=== PATIENT | female | born 1995 | race Hispanic/Latino ===

== ENCOUNTER 2017-06-21 20:45 | Emergency (ER) | payer OTHER, SELFPAY | END 2017-06-21 23:06 | disposition home or self-care (01) | LOC: ERS 20:45 | DX: H66.91 Otitis media, unspecified, right ear (principal); J01.90 Acute sinusitis, unspecified; F17.210 Nicotine dependence, cigarettes, uncomplicated | CPT/HCPCS: 99283 ==

== ENCOUNTER 2018-01-06 13:40 | Emergency (ER) | payer SELFPAY ==
[2018-01-06 14:11] LABS: #Basophils 0.1 thou/uL (0.0-0.2); #Eosinphils 0.3 thou/uL (0.0-0.7); #Lymphocytes 2.2 thou/uL (1.20-3.40); #Monocytes 0.5 thou/uL (0.11-0.59); #Neutrophils 7.5 thou/uL (1.40-6.50); %Basophils 0.9 % (0.0-1.0); %Eosinophils 2.9 % (0.0-10.0); %Lymphocytes 20.5 % (21.0-51.0); %Neutrophils 70.8 % (42.0-75.0); Hemoglobin 15.3 g/dL (12.0-16.0); Mean Corpuscular HGB CONC 33.5 g/dL (32.0-36.0); Mean Corpuscular Hemoglobin 28.2 pg (27.0-31.0); Mean Platelet Volume 7.6 fL (7.4-10.4); Platelet Count 195 thou/uL (130-400); RBC Distribution Width 13.4 % (11.5-14.5); Red Blood Cell (RBC) Count 5.44 mill/uL (4.20-5.40); White Blood Cell (WBC) Count 10.6 thou/uL (4.8-10.8)
[2018-01-06] MEDS ORDERED: Ondansetron ODT 8 MG TAB ONE (14:13)
[2018-01-06 14:32] LABS: Bilirubin Small (Negative); Blood, Urine Trace (Negative); Glucose, Urine (Dipstick) Negative (Negative); Leukocyte Trace (Negative); Nitrite Negative (Negative); Protein, Urine (Dipstick) Trace mg/dL (Neg-Trace); Urobilinogen 0.2 mg/dL (0.2-1.0)
[2018-01-06 14:33] LABS: ALT (SGPT) 69 U/L (8-55); AST (SGOT) 31 U/L (5-34); Albumin 4.6 g/dL (3.5-5.0); Alkaline Phosphatase 71 U/L (40-150); Anion Gap 14 mmol/L (10-20); BUN (Urea Nitrogen) 11 mg/dL (7.0-18.7); Bilirubin, Total 0.7 mg/dL (0.2-1.2); Calc. Creatinine Clearance 0 mL/min (70-130); Calcium 9.7 mg/dL (7.8-10.44); Carbon Dioxide 21 mmol/L (22-29); Chloride 107 mmol/L (98-107); Estimated GFR-MDRD Greater than 90; Globulin 3.5 g/dL (2.4-3.5); Glucose 100 mg/dL (70-105); Lipase 7 U/L (8-78); Potassium 3.9 mmol/L (3.5-5.1); Protein, Total 8.1 g/dL (6.0-8.3); Sodium 138 mmol/L (136-145)
[2018-01-06 14:33] LABS: Clarity Clear (Clear)
[2018-01-06 14:35] LABS: Pregnancy Test - Urine (BHCG) Negative (Negative); Pregu Control Background? CLEAR/WHITE (CLR/WHITE); Pregu Control Bar Appear? YES (CONTROL BAR)
[2018-01-06 14:43] LABS: Bacteria/HPF None Seen HPF (None Seen); Hyaline Casts/LPF NONE SEEN LPF (0-3 Hyaline); RBC/HPF 0-3 HPF (0-3); Renal Epithelial None Seen HPF (0-3); Squamous Epithelial 0-3 HPF (0-3); Transitional Epithelial NONE SEEN HPF (0-3); WBC/HPF 0-3 HPF (0-3)
--- NOTE | 2018-01-06 15:26 | ULT ---
SONOGRAM RIGHT UPPER QUADRANT: HISTORY: Right upper quadrant pain. FINDINGS: Gallbladder has a normal appearance without evidence of stones. Common duct is 0.4 cm. Liver unrema rkable without foal mass or intrahepatic biliary dilatation. No free fluid. IMPRESSION: No evidence of gallstones or biliary obstruction. POS: [facility]
[2018-01-06] MEDS ORDERED: Mag-Al 1200 mg/1200 mg/30 ML UDCUP ONE (15:40)
[2018-01-06] MEDS ORDERED: Lidocaine Viscous Sol 2% 15 ml UD Cup ONE (15:40)
== END 2018-01-06 16:50 | disposition home or self-care (01) ==
LOC: ERS 13:40
DX: K29.70 Gastritis, unspecified, without bleeding (principal); Z71.6 Tobacco abuse counseling; F17.210 Nicotine dependence, cigarettes, uncomplicated
CPT/HCPCS: 76705; 80053; 81003; 81015; 81025; 83690; 85025; 96361; 96374; 99406; J2270

== ENCOUNTER 2018-07-30 21:07 | Emergency (ER) | payer SELFPAY ==
[2018-07-30 22:03] LABS: #Eosinphils 0.3 thou/uL (0.0-0.7); #Lymphocytes 1.9 thou/uL (1.20-3.40); #Monocytes 0.5 thou/uL (0.11-0.59); #Neutrophils 6.1 thou/uL (1.40-6.50); %Basophils 0.2 % (0.0-1.0); %Eosinophils 3.1 % (0.0-10.0); %Lymphocytes 21.4 % (21.0-51.0); %Monocytes 5.2 % (0.0-10.0); %Neutrophils 70.1 % (42.0-75.0); Hemoglobin 13.5 g/dL (12.0-16.0); Mean Corpuscular HGB CONC 34.3 g/dL (32.0-36.0); Mean Corpuscular Hemoglobin 28.5 pg (27.0-31.0); Mean Corpuscular Volume 83.1 fL (78.0-98.0); Mean Platelet Volume 8.1 fL (7.4-10.4); Platelet Count 189 thou/uL (130-400); RBC Distribution Width 13.5 % (11.5-14.5); Red Blood Cell (RBC) Count 4.74 mill/uL (4.20-5.40); White Blood Cell (WBC) Count 8.8 thou/uL (4.8-10.8)
[2018-07-30 22:23] LABS: ALT (SGPT) 61 U/L (8-55); AST (SGOT) 27 U/L (5-34); Alkaline Phosphatase 61 U/L (40-150); Anion Gap 12 mmol/L (10-20); BUN (Urea Nitrogen) 7 mg/dL (7.0-18.7); Bilirubin, Total 0.5 mg/dL (0.2-1.2); Calc. Creatinine Clearance 0 mL/min (70-130); Calcium 8.3 mg/dL (7.8-10.44); Carbon Dioxide 24 mmol/L (22-29); Chloride 104 mmol/L (98-107); Estimated GFR-MDRD Greater than 90; Globulin 3.2 g/dL (2.4-3.5); Glucose 119 mg/dL (70-105); Lipase 10 U/L (8-78); Protein, Total 7.2 g/dL (6.0-8.3); Sodium 137 mmol/L (136-145)
[2018-07-30 22:28] LABS: Bilirubin Small (Negative); Blood, Urine Negative (Negative); Clarity CLEAR (Clear); Glucose, Urine (Dipstick) Negative (Negative); Leukocyte Negative (Negative); Nitrite Negative (Negative); Protein, Urine (Dipstick) Negative (Neg-Trace); Specific Gravity, Urine 1.025 (1.002-1.036)
[2018-07-30 22:29] LABS: Pregnancy Test - Urine (BHCG) POSITIVE (Negative); Pregu Control Background? CLEAR/WHITE (CLR/WHITE); Pregu Control Bar Appear? YES (CONTROL BAR); Specific Gravity 1.025 (1.002-1.036)
[2018-07-30] MEDS ORDERED: Metoclopramide HCl 10 MG/2 ML VIAL ONE (23:04)
[2018-07-30] MEDS ORDERED: Acetaminophen 500 MG TAB ONE (23:04)
== END 2018-07-31 00:30 | disposition home or self-care (01) ==
LOC: ERS 21:07
DX: O99.89 Other specified diseases and conditions complicating pregnancy, childbirth and the puerperium (principal); R51 Headache; O99.341 Other mental disorders complicating pregnancy, first trimester; F41.9 Anxiety disorder, unspecified; Z3A.01 Less than 8 weeks gestation of pregnancy
CPT/HCPCS: 36415; 80053; 81003; 81025; 83690; 85025; 96365; J2765

== ENCOUNTER 2018-09-10 07:32 | Outpatient (CLI) | payer OTHER ==
--- NOTE | 2018-09-10 09:21 | ULT ---
PELVIC ULTRASOUND: Date: 09-10-18 Provided Clinical History: High risk 1st trimester . FINDINGS: A single live intrauterine gestation is documented, 10 weeks 5 days by crown-rump length. heart rate of 161 beats/minute is documented. There is no evidence for gestational hemorrhage. The right ovary is not distinctly identified. The left ovary appears sonographically unremarkable wit h a physiologic 3.7 cm cyst demonstrated. There is no evidence for free pelvic fluid. Color doppler and spectral analysis of the left ovary demonstrates normal flow. IMPRESSION: Single live intrauterine gestation, 10 weeks 5 days by ultrasound. Follow up anatomic survey sh ould be considered. POS: [facility]
== END 2018-09-10 07:33 | disposition home or self-care (01) ==
LOC: BICULT 07:32
PROVIDERS: ATTEND Obstetrics & Gynecology
DX: O09.91 Supervision of high risk pregnancy, unspecified, first trimester (principal)
CPT/HCPCS: 76856

== ENCOUNTER 2018-11-25 07:55 | Outpatient (CLI) | payer MEDICAID ==
--- NOTE | 2018-11-25 08:50 | ULT ---
US OB Complete STANDARD History: [Anatomy. o09.92 supervision of hyperdense in second trimester] Comparison: None. Findings: Real-time grayscale color Doppler and spectral analysis of the gravid uterus was performed transabdominal approach. Single viable intrauterine with average ultrasound age 21 week 4 day with estimated date of delivery April 03, 2019. Estimated weight is 15 ounces, 43rd percentile. Biometry: Biparietal diameter: 5.01 cm, 21 week 2 day Head circumference: 19.12 cm, 21 week 3 day Abdominal circumference: 16.37 cm, 21 week 4 day Femur length: 3.7 cm, 21 weeks 6 day Cervix measures 3.3 cm in length. Adequate amniotic fluid. No placenta previa. The placenta is patented hogshead assembler ior and the presentation is variable. Anatomy: The head, cerebellum, cisterna magna, lateral ventricles, four-chamber heart, stomach, kidneys, cord insertion, bladder, spine, lips/nose, upper extremities, lower extremities, three-vessel cord are all normal. The heart rate is documented at 143 bpm. Impression: Normal single viable intrauterine .
== END 2018-11-25 07:56 | disposition home or self-care (01) ==
LOC: BICULT 07:55
PROVIDERS: ATTEND Obstetrics & Gynecology
DX: O09.92 Supervision of high risk pregnancy, unspecified, second trimester (principal); Z3A.21 21 weeks gestation of pregnancy
CPT/HCPCS: 76805

== ENCOUNTER 2019-01-27 14:32 | Outpatient (CLI) | payer OTHER ==
--- NOTE | 2019-01-27 15:38 | ULT ---
ULTRASOUND WITH DOPPLER DUPLEX VENOUS LOWER EXTREMITY LEFT CPT: 95172 ICD-10-PCS: B54D HISTORY: Pain/edema. TECHNIQUE: Color flow Doppler, spectral waveform analysis of pulsed Doppler, and mcarthur-scale imaging with sheila joseph and augmentation, were used to evaluate the bilateral common femoral, femoral, popliteal, gas examiner ior tibial, and superficial femoral, veins; and the proximal portions of the profunda femoral and gre ater saphenous, veins. FINDINGS: Appropriate compressibility and flow within the deep vein system of the visualized left lower extremi ty. IMPRESSION: No deep vein thrombosis. POS: [facility]
== END 2019-01-27 14:33 | disposition home or self-care (01) ==
LOC: BICULT 14:32
PROVIDERS: ATTEND Nurse Practitioner
DX: M79.662 Pain in left lower leg (principal)

== ENCOUNTER 2019-02-06 13:33 | Outpatient (CLI) | payer OTHER ==
--- NOTE | 2019-02-06 16:23 | ULT ---
LIMITED OB ULTRASOUND: HISTORY: Follow up growth. FINDINGS: A single viable intrauterine fetus is noted in transverse lie with the head on the maternal left side . The placenta is posterior. Amniotic fluid is within normal limits. Cervical length approximates 4 cm. No evidence for placenta previa. anatomy was not evaluated at this time. BPD: 8.0 cm (32 weeks 2 days). HEAD CIRCUMFERENCE: 30 cm (33 weeks 2 days). ABDOMINAL CIRCUMFERENCE: 29.1 cm (33 weeks 1 day). FEMUR LENGTH: 6.3 cm (32 weeks 4 days). heart rate is 135 beats per minute. IMPRESSION: 1. Gestational age average 32 weeks 6 days. 2. Estimated date of delivery 03/28/2019. 3. Estimated weight 2062 g. POS: [facility]
== END 2019-02-06 13:34 | disposition home or self-care (01) ==
LOC: BICULT 13:33
PROVIDERS: ATTEND Obstetrics & Gynecology
DX: O09.93 Supervision of high risk pregnancy, unspecified, third trimester (principal); Z3A.32 32 weeks gestation of pregnancy
CPT/HCPCS: 76815

== ENCOUNTER 2019-05-12 15:33 | Emergency (ER) | payer OTHER ==
--- NOTE | 2019-05-12 16:14 | RAD ---
3 views right foot: 05/12/2019 COMPARISON: None HISTORY: Foot pain, trauma FINDINGS: No fracture or dislocation. No radiopaque foreign body or subcutaneous gas. IMPRESSION: There is a subtle linear calcification lateral to the proximal aspect of the right cuboid which could represent a soft tissue calcification or an avulsion fracture. Correlation for point tenderness in this region is advised. If symptoms persist, follow-up foot MRI may be beneficial. IMPRESSION: Linear calcification adjacent to the lateral aspect of the cuboid bone.
[2019-05-12] MEDS ORDERED: traMADol HCl 50 MG TAB ONE (16:17)
== END 2019-05-12 16:24 | disposition home or self-care (01) ==
LOC: ERS 15:33
DX: S93.601A Unspecified sprain of right foot, initial encounter (principal); W19.XXXA Unspecified fall, initial encounter

== ENCOUNTER 2021-03-26 09:43 | Emergency (ER) | payer MEDICAID, OTHER, SELFPAY | END 2021-03-26 10:48 | disposition home or self-care (01) | LOC: ERS 09:43 | DX: J06.9 Acute upper respiratory infection, unspecified (principal) | CPT/HCPCS: 99283 ==

== ENCOUNTER 2021-03-29 | Emergency (ER) | payer MEDICAID | END 2021-03-29 10:10 | disposition home or self-care (01) | DX: H66.91 Otitis media, unspecified, right ear (principal) ==

== ENCOUNTER 2021-04-13 19:25 | Emergency (ER) | payer MEDICAID, SELFPAY ==
[~2021-04-13 19:25] MED LIST: Iopamidol-370 76% 500 ML 1 ML ONE
[2021-04-13 20:44] LABS: Bilirubin Negative (Negative); Blood, Urine Negative (Negative); Clarity Clear (Clear); Glucose, Urine (Dipstick) Normal (Negative); Ketone, Urine Negative (Negative); Leukocyte Negative Leu/uL (Negative); Nitrite Negative (Negative); Protein, Urine (Dipstick) 20 mg/dL (Neg-Trace); Specific Gravity, Urine 1.029 (1.002-1.036)
[2021-04-13 20:46] LABS: Pregnancy Test - Urine (BHCG) Negative (Negative); Pregu Control Background? CLEAR/WHITE (CLR/WHITE); Pregu Control Bar Appear? YES (CONTROL BAR); Specific Gravity 1.029 (1.002-1.036)
[2021-04-13 22:35] LABS: #Lymphocytes 1.5 thou/uL (1.20-3.40); #Monocytes 0.3 thou/uL (0.11-0.59); #Neutrophils 10.9 thou/uL (1.40-6.50); %Eosinophils 0.3 % (0.0-10.0); %Lymphocytes 11.9 % (21.0-51.0); %Neutrophils 85.8 % (42.0-75.0); Hemoglobin 12.8 g/dL (12.0-16.0); Mean Corpuscular HGB CONC 32.4 g/dL (32.0-36.0); Mean Corpuscular Hemoglobin 26.8 pg (27.0-31.0); Mean Corpuscular Volume 82.6 fL (78.0-98.0); Mean Platelet Volume 8.6 fL (7.4-10.4); Platelet Count 208 thou/uL (130-400); RBC Distribution Width 13.2 % (11.5-14.5); Red Blood Cell (RBC) Count 4.79 mill/uL (4.20-5.40); White Blood Cell (WBC) Count 12.7 thou/uL (4.8-10.8)
[2021-04-13] MEDS ORDERED: Lidocaine 1% (PF) 30 ML VIAL ONE (22:42)
[2021-04-13 22:55] LABS: ALT (SGPT) 64 U/L (8-55); AST (SGOT) 26 U/L (5-34); Alkaline Phosphatase 68 U/L (40-110); Anion Gap 12 mmol/L (10-20); BUN (Urea Nitrogen) 8 mg/dL (7.0-18.7); Bilirubin, Total 0.4 mg/dL (0.2-1.2); Calc. Creatinine Clearance 0 mL/min (70-130); Calcium 8.8 mg/dL (7.8-10.44); Carbon Dioxide 24 mmol/L (22-29); Chloride 107 mmol/L (98-107); Glucose 171 mg/dL (70-105); Potassium 4.1 mmol/L (3.5-5.1); Sodium 139 mmol/L (136-145)
[2021-04-13] MEDS ORDERED: Acetaminophen 500 MG TAB ONE (23:38)
[2021-04-14] MEDS ORDERED: diphenhydrAMINE 50 MG/ML VIAL ONE (00:06)
[2021-04-14] MEDS ORDERED: Ketorolac Tromethamine 30 MG/ML VIAL ONE (00:07)
[2021-04-14] MEDS ORDERED: Metoclopramide HCl 10 MG/2 ML VIAL ONE (00:07)
== END 2021-04-14 01:10 | disposition home or self-care (01) ==
LOC: ERS 19:25
DX: R51.9 Headache, unspecified (principal)
CPT/HCPCS: 36415; 62270; 70496; 80053; 81003; 81025; 85025; 96374; 96375; J1200; J1885; J2001; J2765; Q9967

== ENCOUNTER 2022-05-21 22:38 | Emergency (ER) | payer SELFPAY ==
[2022-05-21] MEDS ORDERED: Mag-Al 1200 mg/1200 mg/30 ML UDCUP ONE (23:13)
[2022-05-21 23:35] LABS: #Eosinphils 0.3 thou/uL (0.0-0.7); #Lymphocytes 1.5 thou/uL (1.20-3.40); #Monocytes 0.5 thou/uL (0.11-0.59); #Neutrophils 6.8 thou/uL (1.40-6.50); %Basophils 0.3 % (0.0-1.0); %Lymphocytes 16.5 % (21.0-51.0); %Monocytes 5.1 % (0.0-10.0); %Neutrophils 75.2 % (42.0-75.0); Hemoglobin 12.8 g/dL (12.0-16.0); Mean Corpuscular HGB CONC 32.3 g/dL (32.0-36.0); Mean Corpuscular Hemoglobin 26.3 pg (27.0-31.0); Mean Corpuscular Volume 81.3 fL (78.0-98.0); Mean Platelet Volume 9.4 fL (7.4-10.4); Platelet Count 144 thou/uL (130-400); RBC Distribution Width 13.8 % (11.5-14.5); Red Blood Cell (RBC) Count 4.89 mill/uL (4.20-5.40)
[2022-05-21 23:36] LABS: Bilirubin Negative (Negative); Blood, Urine Negative (Negative); Clarity Clear (Clear); Glucose, Urine (Dipstick) Normal (Negative); Ketone, Urine Negative (Negative); Leukocyte Negative Leu/uL (Negative); Nitrite Negative (Negative); Protein, Urine (Dipstick) Negative (Neg-Trace); Specific Gravity, Urine 1.003 (1.002-1.036); Urobilinogen Normal mg/dL (Less than 2); pH, Urine 7.5 (5.0-9.0)
[2022-05-21 23:44] LABS: BHCG - Serum Negative (NEGATIVE); Pregs Control Background? CLEAR/WHITE (CLR/WHITE); Pregs Control Bar Appear? YES (CONTROL BAR)
[2022-05-21 23:55] LABS: ALT (SGPT) 52 U/L (8-55); AST (SGOT) 23 U/L (5-34); Albumin 3.9 g/dL (3.5-5.0); Alkaline Phosphatase 60 U/L (40-110); Anion Gap 12 mmol/L (10-20); BUN (Urea Nitrogen) 9 mg/dL (7.0-18.7); Bilirubin, Total 0.9 mg/dL (0.2-1.2); Calc. Creatinine Clearance 0 mL/min (70-130); Calcium 8.3 mg/dL (7.8-10.44); Carbon Dioxide 24 mmol/L (22-29); Chloride 106 mmol/L (98-107); Estimated GFR 109; Globulin 3.1 g/dL (2.4-3.5); Glucose 105 mg/dL (70-105); Lipase 10 U/L (8-78); Potassium 3.7 mmol/L (3.5-5.1); Sodium 138 mmol/L (136-145)
[2022-05-22] MEDS ORDERED: Acetaminophen 500 MG TAB ONE (00:42)
[2022-05-22] MEDS ORDERED: Ibuprofen 800 MG TAB ONE (00:42)
[2022-05-22] MEDS ORDERED: Ibuprofen 200 MG TAB ONE (00:44)
== END 2022-05-22 00:55 | disposition home or self-care (01) ==
LOC: ERS 22:38
DX: R10.13 Epigastric pain (principal)
CPT/HCPCS: 36415; 80053; 81003; 83690; 84703; 85025; 93005

== ENCOUNTER 2023-08-24 00:34 | Emergency (ER) | payer SELFPAY ==
[2023-08-24] MEDS ORDERED: Ondansetron PF 4 MG/2 ML Vial ONE (01:26)
[2023-08-24] MEDS ORDERED: Famotidine/PF 20 mg/2ml Vial ONE (01:27)
[2023-08-24 03:51] LABS: #Eosinphils 0.5 thou/uL (0.0-0.7); #Monocytes 0.5 thou/uL (0.11-0.59); #Neutrophils 7.1 thou/uL (1.40-6.50); %Basophils 0.2 % (0.0-1.0); %Eosinophils 4.6 % (0.0-10.0); %Lymphocytes 22.7 % (21.0-51.0); %Monocytes 4.8 % (0.0-10.0); %Neutrophils 67.3 % (42.0-75.0); Hematocrit 34.9 % (36.0-47.0); Mean Corpuscular HGB CONC 31.5 g/dL (32.0-36.0); Mean Corpuscular Hemoglobin 25.5 pg (27.0-31.0); Mean Platelet Volume 10.7 fL (7.4-10.4); Platelet Count 150 10x3/uL (130-400); RBC Distribution Width 14.4 % (11.5-14.5); Red Blood Cell (RBC) Count 4.31 mill/uL (4.20-5.40); White Blood Cell (WBC) Count 10.6 10x3/uL (4.8-10.8)
[2023-08-24 04:15] LABS: BHCG - Serum Negative (NEGATIVE); Pregs Control Background? CLEAR/WHITE (CLR/WHITE); Pregs Control Bar Appear? YES (CONTROL BAR)
[2023-08-24 04:16] LABS: ALT (SGPT) 33 U/L (8-55); AST (SGOT) 15 U/L (5-34); Albumin 3.5 g/dL (3.5-5.0); Alkaline Phosphatase 56 U/L (40-110); Anion Gap 11 mmol/L (10-20); BUN (Urea Nitrogen) 10 mg/dL (7.0-18.7); Bilirubin, Total 0.4 mg/dL (0.2-1.2); Calc. Creatinine Clearance 0 mL/min (70-130); Calcium 7.9 mg/dL (7.8-10.44); Carbon Dioxide 21 mmol/L (22-29); Chloride 109 mmol/L (98-107); Estimated GFR 120; Globulin 2.7 g/dL (2.4-3.5); Glucose 130 mg/dL (70-105); Lipase 18 U/L (8-78); Potassium 3.5 mmol/L (3.5-5.1); Protein, Total 6.2 g/dL (6.0-8.3); Sodium 137 mmol/L (136-145)
[2023-08-24 04:20] LABS: Troponin I Less than 0.010 ng/mL (< 0.028)
== END 2023-08-24 04:40 | disposition home or self-care (01) ==
LOC: ERS 00:34
DX: K29.00 Acute gastritis without bleeding (principal)
CPT/HCPCS: 36415; 71045; 76705; 80053; 83605; 83690; 84484; 84703; 85025; 96374; 96375; J2405; S0028

== ENCOUNTER 2025-04-09 19:21 | Emergency (ER) | payer SELFPAY ==
[2025-04-09] MEDS ORDERED: Ketorolac Tromethamine 30 MG (1 mL) VIAL ONE (19:55)
[2025-04-09 20:05] LABS: #Basophils 0.04 10x3/uL (0.0-0.2); #Eosinophils 0.29 10x3/uL (0.0-0.7); #Monocytes 0.54 10x3/uL (0.11-0.59); #Neutrophils 7.24 10x3/uL (1.40-6.50); %Basophils 0.4 % (0.0-1.0); %Eosinophils 3.0 % (0.0-10.0); %Lymphocytes 17.0 % (21.0-51.0); %Monocytes 5.5 % (0.0-10.0); %Neutrophils 73.9 % (42.0-75.0); Hematocrit 41.7 % (36.0-47.0); Hemoglobin 13.3 g/dL (12.0-16.0); Mean Corpuscular Hemoglobin 25.4 pg (27.0-31.0); Mean Corpuscular Volume 79.6 fL (78.0-98.0); Platelet Count 193 10x3/uL (130-400); Red Blood Cell (RBC) Count 5.24 mill/uL (4.20-5.40); White Blood Cell (WBC) Count 9.79 10x3/uL (4.8-10.8)
[2025-04-09 20:29] LABS: ALT (SGPT) 33 U/L (Less than 34); AST (SGOT) 36 U/L (11-34); Albumin 4.0 g/dL (3.1-4.5); Alkaline Phosphatase 68 U/L (40-110); Anion Gap 11 mmol/L (10-20); BUN (Urea Nitrogen) 12 mg/dL (7.0-18.7); Bilirubin, Total 0.4 mg/dL (0.3-1.2); Calc. Creatinine Clearance 0 mL/min (70-130); Calcium 8.8 mg/dL (7.8-10.44); Carbon Dioxide 22 mmol/L (22-29); Chloride 110 mmol/L (98-107); Globulin 3.1 g/dL (2.4-3.5); Glucose 110 mg/dL (70-105); Lipase 23 U/L (8-78); Magnesium 2.0 mg/dL (1.6-2.6); Potassium 3.8 mmol/L (3.5-5.1); Sodium 139 mmol/L (136-145)
== END 2025-04-09 23:30 | disposition home or self-care (01) ==
LOC: ERS 19:21
DX: R07.9 Chest pain, unspecified (principal)
CPT/HCPCS: 71045; 80053; 83690; 83735; 84484; 85025; 93005; 96372; J1885